=== PATIENT | female | born 1980 ===

== ENCOUNTER 2020-10-05 17:20 | Inpatient (IN) | payer BC ==
[2020-10-05 17:57] VITALS: BMI 24.7
[2020-10-05] MEDS ORDERED: BISMUTH SUBSALICYLATE 524 MG/30 ML UD PO PRN (18:08)
[2020-10-05] MEDS ORDERED: MAG HYDROX/AL HYDROX/SIMETH 30 ML UNIT-DOSE CUP PO PRN (18:08)
[2020-10-05] MEDS ORDERED: NICOTINE POLACRILEX 2 MG GUM BUC PRN (18:08)
[2020-10-05] MEDS ORDERED: MAGNESIUM CITRATE 300 ML BOTTLE PO PRN (18:08)
[2020-10-05] MEDS ORDERED: ACETAMINOPHEN 325 MG TABLET (FP) PO PRN ×2 (18:08)
[2020-10-05] MEDS ORDERED: ONDANSETRON *ODT* 4 MG TABLET SL PRN (18:08)
[2020-10-05] MEDS ORDERED: MAGNESIUM HYDROX 2400MG/30ML ORAL SUSPENSION 30 ML CUP PO PRN (18:08)
[2020-10-05] MEDS ORDERED: MENTHOL/PHENOL 1 EACH UD MM PRN (18:08)
[2020-10-05] MEDS: hydrOXYzine PAMOATE 25 MG CAPSULE (FP) PO PRN (19:36)
[2020-10-05] MEDS: IBUPROFEN 400 MG TABLET (FP) PO PRN (19:37)
[2020-10-05] MEDS: chlordiazePOXIDE HCL 25 MG CAPSULE PO PRN (19:38)
[2020-10-05] MEDS: THIAMINE HCL 100 MG TABLET (FP) PO SCH (22:12)
[2020-10-05] MEDS: MELATONIN 5 MG TABLETS PO SCH (22:12)
[2020-10-05] MEDS: chlordiazePOXIDE HCL 25 MG CAPSULE PO SCH (22:12)
[2020-10-06] MEDS: hydrOXYzine PAMOATE 25 MG CAPSULE (FP) PO PRN ×4 (03:56→22:11)
[2020-10-06] MEDS: chlordiazePOXIDE HCL 25 MG CAPSULE PO SCH ×4 (04:11→22:09)
[2020-10-06] MEDS: IBUPROFEN 400 MG TABLET (FP) PO PRN (05:59)
[2020-10-06] MEDS: METHOCARBAMOL 500 MG TABLET PO PRN ×2 (05:59→12:09)
[2020-10-06] MEDS: chlordiazePOXIDE HCL 25 MG CAPSULE PO PRN ×2 (06:01→12:08)
[2020-10-06] MEDS: NICOTINE 14 MG/24 HOURS TOPICAL PATCH TD SCH (10:08)
[2020-10-06] MEDS: PRENATAL VITAMINS W/ FOLIC ACID TABLET (FP) PO SCH (10:08)
[2020-10-06 12:37] LABS: HEMATOCRIT 33.4 % (32.4-45.2); HEMOGLOBIN 11.4 GM/dL (10.7-15.3); MEAN CELL VOLUME 88.1 fl (80-96); MEAN PLT VOLUME 8.8 fl (7.5-11.1); PLATELET COUNT 106 K/MM3 (134-434); RBC 3.79 M/mm3 (3.60-5.2); RDW 14.4 % (11.6-15.6)
[2020-10-06 12:55] LABS: POTASSIUM 3.7 mmol/L (3.5-5.1)
[2020-10-06 12:58] LABS: BLOOD UREA NITROGEN 7.2 mg/dL (7-18)
[2020-10-06 13:00] LABS: CALCIUM 8.4 mg/dL (8.5-10.1)
[2020-10-06 13:01] LABS: ALBUMIN 3.4 g/dl (3.4-5.0)
[2020-10-06 13:04] LABS: CREATININE 0.7 mg/dL (0.55-1.3)
[2020-10-06 13:05] LABS: BILIRUBIN,TOTAL 0.6 mg/dL (0.2-1); TOT PROT 6.2 g/dl (6.4-8.2)
[2020-10-06] MEDS: MELATONIN 5 MG TABLETS PO SCH (22:09)
[2020-10-06] MEDS: THIAMINE HCL 100 MG TABLET (FP) PO SCH (22:09)
[2020-10-06] MEDS: traZODone HCL 50 MG TABLET (FP) PO SCH (22:09)
[2020-10-07] MEDS: hydrOXYzine PAMOATE 25 MG CAPSULE (FP) PO PRN ×4 (06:15→22:09)
[2020-10-07] MEDS: chlordiazePOXIDE HCL 25 MG CAPSULE PO SCH ×4 (06:16→22:07)
[2020-10-07] MEDS: METHOCARBAMOL 500 MG TABLET PO PRN ×2 (09:32→18:10)
[2020-10-07] MEDS: ARIPiprazole 5 MG TABLET PO SCH (09:32)
[2020-10-07] MEDS: NICOTINE 14 MG/24 HOURS TOPICAL PATCH TD SCH (09:32)
[2020-10-07] MEDS: PRENATAL VITAMINS W/ FOLIC ACID TABLET (FP) PO SCH (09:32)
[2020-10-07] MEDS: FLUoxetine HCL 10 MG CAPSULE PO SCH (09:32)
[2020-10-07 12:41] LABS: ALBUMIN 3.5 g/dl (3.4-5.0)
[2020-10-07 12:44] LABS: CREATININE 0.8 mg/dL (0.55-1.3)
[2020-10-07 12:46] LABS: BILIRUBIN,TOTAL 0.9 mg/dL (0.2-1); TOT PROT 6.4 g/dl (6.4-8.2)
[2020-10-07 12:47] LABS: HEMATOCRIT 34.1 % (32.4-45.2); HEMOGLOBIN 11.6 GM/dL (10.7-15.3); MCH 30.1 pg (25.7-33.7); MCHC 34.2 g/dl (32.0-36.0); MEAN CELL VOLUME 88.2 fl (80-96); MEAN PLT VOLUME 9.5 fl (7.5-11.1); PLATELET COUNT 89 K/MM3 (134-434); RBC 3.87 M/mm3 (3.60-5.2); RDW 14.3 % (11.6-15.6); WHITE BLOOD COUNT 3.5 K/mm3 (4.0-10.0)
[2020-10-07] MEDS: traZODone HCL 50 MG TABLET (FP) PO SCH (22:06)
[2020-10-07] MEDS: MELATONIN 5 MG TABLETS PO SCH (22:06)
[2020-10-07] MEDS: THIAMINE HCL 100 MG TABLET (FP) PO SCH (22:06)
[2020-10-08] MEDS ORDERED: chlordiazePOXIDE HCL 10 MG CAPSULE PO PRN
[2020-10-08] MEDS: hydrOXYzine PAMOATE 25 MG CAPSULE (FP) PO PRN ×4 (04:30→22:12)
[2020-10-08] MEDS: METHOCARBAMOL 500 MG TABLET PO PRN ×3 (04:35→22:12)
[2020-10-08] MEDS: chlordiazePOXIDE HCL 10 MG CAPSULE PO SCH ×4 (06:02→22:11)
[2020-10-08] MEDS: NICOTINE 14 MG/24 HOURS TOPICAL PATCH TD SCH (10:08)
[2020-10-08] MEDS: ARIPiprazole 5 MG TABLET PO SCH (10:08)
[2020-10-08] MEDS: PRENATAL VITAMINS W/ FOLIC ACID TABLET (FP) PO SCH (10:08)
[2020-10-08] MEDS: FLUoxetine HCL 10 MG CAPSULE PO SCH (10:08)
[2020-10-08 14:07] LABS: SARS-CoV-2 NAA Not Detected (Not Detected)
[2020-10-08] MEDS: THIAMINE HCL 100 MG TABLET (FP) PO SCH (22:10)
[2020-10-08] MEDS: traZODone HCL 50 MG TABLET (FP) PO SCH (22:10)
[2020-10-08] MEDS: MELATONIN 5 MG TABLETS PO SCH (22:11)
[2020-10-09] MEDS: chlordiazePOXIDE HCL 10 MG CAPSULE PO SCH ×2 (06:27→17:47)
[2020-10-09] MEDS: hydrOXYzine PAMOATE 25 MG CAPSULE (FP) PO PRN ×3 (06:30→23:36)
[2020-10-09] MEDS: ARIPiprazole 5 MG TABLET PO SCH (10:06)
[2020-10-09] MEDS: FLUoxetine HCL 10 MG CAPSULE PO SCH (10:06)
[2020-10-09] MEDS: NICOTINE 14 MG/24 HOURS TOPICAL PATCH TD SCH (10:06)
[2020-10-09] MEDS: PRENATAL VITAMINS W/ FOLIC ACID TABLET (FP) PO SCH (10:07)
[2020-10-09] MEDS: METHOCARBAMOL 500 MG TABLET PO PRN ×3 (10:07→23:34)
[2020-10-09] MEDS ORDERED: ATORVASTATIN CA 40 MG TABLET (FP) PO SCH (22:00)
[2020-10-09] MEDS: MELATONIN 5 MG TABLETS PO SCH (23:35)
[2020-10-09] MEDS: THIAMINE HCL 100 MG TABLET (FP) PO SCH (23:35)
[2020-10-09] MEDS: traZODone HCL 50 MG TABLET (FP) PO SCH (23:35)
[2020-10-10] MEDS ORDERED: chlordiazePOXIDE HCL 10 MG CAPSULE PO ONE (05:00)
[2020-10-10 09:19] VITALS: BP 109/71; PULSE 67; TEMP 97.3
[2020-10-10] MEDS: PRENATAL VITAMINS W/ FOLIC ACID TABLET (FP) PO SCH (09:32)
[2020-10-10] MEDS: ARIPiprazole 5 MG TABLET PO SCH (09:32)
[2020-10-10] MEDS: FLUoxetine HCL 10 MG CAPSULE PO SCH (09:32)
[2020-10-10] MEDS: NICOTINE 14 MG/24 HOURS TOPICAL PATCH TD SCH (09:33)
[2020-10-10] MEDS: METHOCARBAMOL 500 MG TABLET PO PRN (09:33)
== END 2020-10-10 11:53 | disposition other institution (70) | DRG 775 ==
LOC: YASAS 17:20 → Y3N 18:53
PROVIDERS: ADMIT Allergy & Immunology; ATTEND Allergy & Immunology
PROC: HZ2ZZZZ Detoxification Services for Substance Abuse Treatment (ICD-10-PCS; principal; 2020-10-05)
DX: F10.230 Alcohol dependence with withdrawal, uncomplicated (principal); F12.20 Cannabis dependence, uncomplicated; F17.210 Nicotine dependence, cigarettes, uncomplicated; F32.9 Major depressive disorder, single episode, unspecified; F41.8 Other specified anxiety disorders; F19.24 Other psychoactive substance dependence with psychoactive substance-induced mood disorder; G40.509 Epileptic seizures related to external causes, not intractable, without status epilepticus; G47.00 Insomnia, unspecified; E78.5 Hyperlipidemia, unspecified; D69.6 Thrombocytopenia, unspecified; R74.01 Elevation of levels of liver transaminase levels; R73.9 Hyperglycemia, unspecified; Z87.440 Personal history of urinary (tract) infections; Z91.410 Personal history of adult physical and sexual abuse
CPT/HCPCS: 36415; 80053; 81025; 85027; 86780; 93005; 93010; C9803; U0003; U0005

== ENCOUNTER 2020-10-10 11:58 | Inpatient (IN) | payer BC ==
[2020-10-10] MEDS ORDERED: P-EPHED 60MG/TRIPROLIDI 2.5MG TABLET PO PRN (15:05)
[2020-10-10] MEDS ORDERED: MAG HYDROX/AL HYDROX/SIMETH 30 ML UNIT-DOSE CUP PO PRN (15:05)
[2020-10-10] MEDS ORDERED: MAGNESIUM HYDROX 2400MG/30ML ORAL SUSPENSION 30 ML CUP PO PRN (15:05)
[2020-10-10] MEDS ORDERED: MENTHOL/PHENOL 1 EACH UD MM PRN (15:05)
[2020-10-10] MEDS ORDERED: MAGNESIUM CITRATE 300 ML BOTTLE PO PRN (15:05)
[2020-10-10] MEDS ORDERED: IBUPROFEN 400 MG TABLET (FP) PO PRN (15:05)
[2020-10-10] MEDS ORDERED: LOPERAMIDE HCL 2 MG CAPSULE PO PRN (15:05)
[2020-10-10] MEDS ORDERED: ACETAMINOPHEN 325 MG TABLET (FP) PO PRN (15:05)
[2020-10-10] MEDS ORDERED: guaiFENesin 200 MG/10 ML 10 ML UNIT-DOSE CUPS PO PRN (15:05)
[2020-10-10] MEDS ORDERED: NICOTINE POLACRILEX 2 MG GUM BUC PRN (15:05)
[2020-10-10] MEDS: hydrOXYzine PAMOATE 25 MG CAPSULE (FP) PO PRN ×2 (15:48→21:23)
[2020-10-10] MEDS: MELATONIN 5 MG TABLETS PO SCH (21:22)
[2020-10-10] MEDS: ATORVASTATIN CA 40 MG TABLET (FP) PO SCH (21:22)
[2020-10-10] MEDS: THIAMINE HCL 100 MG TABLET (FP) PO SCH (21:23)
[2020-10-10] MEDS: METHOCARBAMOL 500 MG TABLET PO PRN (21:24)
[2020-10-10] MEDS ORDERED: traZODone HCL 50 MG TABLET (FP) PO SCH (22:00)
[2020-10-11] MEDS: hydrOXYzine PAMOATE 25 MG CAPSULE (FP) PO PRN ×2 (08:41→17:18)
[2020-10-11] MEDS ORDERED: FLUoxetine HCL 10 MG CAPSULE PO SCH (10:00)
[2020-10-11] MEDS: PRENATAL VITAMINS W/ FOLIC ACID TABLET (FP) PO SCH (10:01)
[2020-10-11] MEDS: METHOCARBAMOL 500 MG TABLET PO PRN ×2 (10:02→21:41)
[2020-10-11] MEDS: ARIPiprazole 5 MG TABLET PO SCH (10:08)
[2020-10-11 12:36] LABS: HIV INTERPRETATION NEGATIVE (NEGATIVE)
[2020-10-11] MEDS: MELATONIN 5 MG TABLETS PO SCH (21:39)
[2020-10-11] MEDS: ATORVASTATIN CA 40 MG TABLET (FP) PO SCH (21:40)
[2020-10-11] MEDS: THIAMINE HCL 100 MG TABLET (FP) PO SCH (21:40)
[2020-10-11] MEDS: traZODone HCL 100 MG TABLET (FP) PO SCH (21:40)
[2020-10-12] MEDS: hydrOXYzine PAMOATE 25 MG CAPSULE (FP) PO PRN ×2 (07:22→17:26)
[2020-10-12] MEDS: ARIPiprazole 5 MG TABLET PO SCH (10:00)
[2020-10-12] MEDS: PRENATAL VITAMINS W/ FOLIC ACID TABLET (FP) PO SCH (10:01)
[2020-10-12] MEDS: METHOCARBAMOL 500 MG TABLET PO PRN ×2 (10:02→21:25)
[2020-10-12] MEDS: THIAMINE HCL 100 MG TABLET (FP) PO SCH (21:22)
[2020-10-12] MEDS: traZODone HCL 100 MG TABLET (FP) PO SCH (21:22)
[2020-10-12] MEDS: MELATONIN 5 MG TABLETS PO SCH (21:22)
[2020-10-12] MEDS: ATORVASTATIN CA 40 MG TABLET (FP) PO SCH (21:22)
[2020-10-13] MEDS ORDERED: PT OWN MED DRAWER 7, Y5N ONE (08:14)
[2020-10-13] MEDS: hydrOXYzine PAMOATE 25 MG CAPSULE (FP) PO PRN ×2 (08:41→14:32)
[2020-10-13] MEDS: PRENATAL VITAMINS W/ FOLIC ACID TABLET (FP) PO SCH (09:52)
[2020-10-13] MEDS: ARIPiprazole 5 MG TABLET PO SCH (09:53)
[2020-10-13] MEDS: METHOCARBAMOL 500 MG TABLET PO PRN ×2 (09:54→21:34)
[2020-10-13] MEDS: traZODone HCL 100 MG TABLET (FP) PO SCH (21:33)
[2020-10-13] MEDS: QUEtiapine FUMARATE 50 MG TABLET PO SCH (21:33)
[2020-10-13] MEDS: MELATONIN 5 MG TABLETS PO SCH (21:33)
[2020-10-13] MEDS: ATORVASTATIN CA 40 MG TABLET (FP) PO SCH (21:33)
[2020-10-13] MEDS: THIAMINE HCL 100 MG TABLET (FP) PO SCH (21:33)
[2020-10-14] MEDS: METHOCARBAMOL 500 MG TABLET PO PRN ×3 (06:49→21:28)
[2020-10-14] MEDS: QUEtiapine FUMARATE 50 MG TABLET PO SCH ×2 (09:49→21:28)
[2020-10-14] MEDS: PRENATAL VITAMINS W/ FOLIC ACID TABLET (FP) PO SCH (09:49)
[2020-10-14] MEDS: ESCITALOPRAM OXALATE 10 MG TABLET PO SCH (09:50)
[2020-10-14 10:07] LABS: SARS-CoV-2 NAA Not Detected (Not Detected)
[2020-10-14] MEDS: ATORVASTATIN CA 40 MG TABLET (FP) PO SCH (21:28)
[2020-10-14] MEDS: MELATONIN 5 MG TABLETS PO SCH (21:28)
[2020-10-14] MEDS: THIAMINE HCL 100 MG TABLET (FP) PO SCH (21:28)
[2020-10-14] MEDS: traZODone HCL 100 MG TABLET (FP) PO SCH (21:28)
[2020-10-15] MEDS: METHOCARBAMOL 500 MG TABLET PO PRN ×2 (07:17→16:59)
[2020-10-15] MEDS: hydrOXYzine PAMOATE 25 MG CAPSULE (FP) PO PRN (07:19)
[2020-10-15] MEDS: PRENATAL VITAMINS W/ FOLIC ACID TABLET (FP) PO SCH (09:47)
[2020-10-15] MEDS: QUEtiapine FUMARATE 50 MG TABLET PO SCH ×2 (09:47→21:34)
[2020-10-15] MEDS: ESCITALOPRAM OXALATE 10 MG TABLET PO SCH (09:48)
[2020-10-15] MEDS: ATORVASTATIN CA 40 MG TABLET (FP) PO SCH (21:34)
[2020-10-15] MEDS: traZODone HCL 100 MG TABLET (FP) PO SCH (21:34)
[2020-10-15] MEDS: THIAMINE HCL 100 MG TABLET (FP) PO SCH (21:34)
[2020-10-15] MEDS: MELATONIN 5 MG TABLETS PO SCH (21:34)
[2020-10-16] MEDS: METHOCARBAMOL 500 MG TABLET PO PRN ×2 (09:00→17:57)
[2020-10-16] MEDS: ESCITALOPRAM OXALATE 10 MG TABLET PO SCH (09:00)
[2020-10-16] MEDS: QUEtiapine FUMARATE 50 MG TABLET PO SCH ×2 (09:00→21:39)
[2020-10-16] MEDS: hydrOXYzine PAMOATE 25 MG CAPSULE (FP) PO PRN ×2 (09:00→21:39)
[2020-10-16] MEDS: PRENATAL VITAMINS W/ FOLIC ACID TABLET (FP) PO SCH (09:00)
[2020-10-16] MEDS: traZODone HCL 100 MG TABLET (FP) PO SCH (21:39)
[2020-10-16] MEDS: THIAMINE HCL 100 MG TABLET (FP) PO SCH (21:39)
[2020-10-16] MEDS: MELATONIN 5 MG TABLETS PO SCH (21:40)
[2020-10-16] MEDS: ATORVASTATIN CA 40 MG TABLET (FP) PO SCH (21:40)
[2020-10-17] MEDS: METHOCARBAMOL 500 MG TABLET PO PRN ×2 (06:32→18:37)
[2020-10-17] MEDS: ESCITALOPRAM OXALATE 10 MG TABLET PO SCH (10:02)
[2020-10-17] MEDS: PRENATAL VITAMINS W/ FOLIC ACID TABLET (FP) PO SCH (10:02)
[2020-10-17] MEDS: QUEtiapine FUMARATE 50 MG TABLET PO SCH ×2 (10:02→21:17)
[2020-10-17] MEDS: hydrOXYzine PAMOATE 25 MG CAPSULE (FP) PO PRN (18:37)
[2020-10-17] MEDS: ATORVASTATIN CA 40 MG TABLET (FP) PO SCH (21:17)
[2020-10-17] MEDS: THIAMINE HCL 100 MG TABLET (FP) PO SCH (21:17)
[2020-10-17] MEDS: MELATONIN 5 MG TABLETS PO SCH (21:17)
[2020-10-17] MEDS: traZODone HCL 100 MG TABLET (FP) PO SCH (21:17)
[2020-10-18] MEDS: METHOCARBAMOL 500 MG TABLET PO PRN ×3 (07:49→21:25)
[2020-10-18] MEDS: PRENATAL VITAMINS W/ FOLIC ACID TABLET (FP) PO SCH (10:22)
[2020-10-18] MEDS: ESCITALOPRAM OXALATE 10 MG TABLET PO SCH (10:22)
[2020-10-18] MEDS: QUEtiapine FUMARATE 50 MG TABLET PO SCH ×2 (10:23→21:25)
[2020-10-18] MEDS: MELATONIN 5 MG TABLETS PO SCH (21:25)
[2020-10-18] MEDS: traZODone HCL 100 MG TABLET (FP) PO SCH (21:25)
[2020-10-18] MEDS: THIAMINE HCL 100 MG TABLET (FP) PO SCH (21:25)
[2020-10-18] MEDS: hydrOXYzine PAMOATE 25 MG CAPSULE (FP) PO PRN (21:25)
[2020-10-18] MEDS: ATORVASTATIN CA 40 MG TABLET (FP) PO SCH (21:25)
[2020-10-19] MEDS: METHOCARBAMOL 500 MG TABLET PO PRN ×3 (06:34→22:06)
[2020-10-19] MEDS: ESCITALOPRAM OXALATE 10 MG TABLET PO SCH (10:13)
[2020-10-19] MEDS: PRENATAL VITAMINS W/ FOLIC ACID TABLET (FP) PO SCH (10:13)
[2020-10-19] MEDS: QUEtiapine FUMARATE 50 MG TABLET PO SCH ×2 (10:13→22:04)
[2020-10-19] MEDS: traZODone HCL 100 MG TABLET (FP) PO SCH (22:04)
[2020-10-19] MEDS: THIAMINE HCL 100 MG TABLET (FP) PO SCH (22:04)
[2020-10-19] MEDS: ATORVASTATIN CA 40 MG TABLET (FP) PO SCH (22:04)
[2020-10-19] MEDS: MELATONIN 5 MG TABLETS PO SCH (22:04)
[2020-10-20] MEDS: METHOCARBAMOL 500 MG TABLET PO PRN ×3 (06:35→21:20)
[2020-10-20] MEDS: PRENATAL VITAMINS W/ FOLIC ACID TABLET (FP) PO SCH (10:32)
[2020-10-20] MEDS: ESCITALOPRAM OXALATE 10 MG TABLET PO SCH (10:32)
[2020-10-20] MEDS: QUEtiapine FUMARATE 50 MG TABLET PO SCH ×2 (10:32→21:20)
[2020-10-20] MEDS: traZODone HCL 100 MG TABLET (FP) PO SCH (21:20)
[2020-10-20] MEDS: MELATONIN 5 MG TABLETS PO SCH (21:20)
[2020-10-20] MEDS: ATORVASTATIN CA 40 MG TABLET (FP) PO SCH (21:20)
[2020-10-20] MEDS: THIAMINE HCL 100 MG TABLET (FP) PO SCH (21:20)
[2020-10-21] MEDS: METHOCARBAMOL 500 MG TABLET PO PRN ×2 (06:31→14:26)
[2020-10-21] MEDS: PRENATAL VITAMINS W/ FOLIC ACID TABLET (FP) PO SCH (10:18)
[2020-10-21] MEDS: QUEtiapine FUMARATE 50 MG TABLET PO SCH ×2 (10:19→21:41)
[2020-10-21] MEDS: ESCITALOPRAM OXALATE 10 MG TABLET PO SCH (10:19)
[2020-10-21] MEDS: traZODone HCL 100 MG TABLET (FP) PO SCH (21:41)
[2020-10-21] MEDS: MELATONIN 5 MG TABLETS PO SCH (21:41)
[2020-10-21] MEDS: ATORVASTATIN CA 40 MG TABLET (FP) PO SCH (21:41)
[2020-10-21] MEDS: THIAMINE HCL 100 MG TABLET (FP) PO SCH (21:41)
[2020-10-22] MEDS: METHOCARBAMOL 500 MG TABLET PO PRN (06:06)
[2020-10-22 07:01] VITALS: BP 119/79; PULSE 57; TEMP 97.8
[2020-10-22] MEDS: ESCITALOPRAM OXALATE 10 MG TABLET PO SCH (10:06)
[2020-10-22] MEDS: QUEtiapine FUMARATE 50 MG TABLET PO SCH (10:06)
[2020-10-22] MEDS: PRENATAL VITAMINS W/ FOLIC ACID TABLET (FP) PO SCH (10:06)
== END 2020-10-22 10:45 | disposition home or self-care (01) | DRG 772 ==
LOC: YASAS 11:58 → Y5N 11:59
PROVIDERS: ADMIT Allergy & Immunology; ATTEND Allergy & Immunology
PROC: HZ42ZZZ Group Counseling for Substance Abuse Treatment, Cognitive-Behavioral (ICD-10-PCS; principal; 2020-10-10)
DX: F10.20 Alcohol dependence, uncomplicated (principal); F17.210 Nicotine dependence, cigarettes, uncomplicated; F31.9 Bipolar disorder, unspecified; F41.9 Anxiety disorder, unspecified; F43.10 Post-traumatic stress disorder, unspecified; E78.5 Hyperlipidemia, unspecified; G47.00 Insomnia, unspecified; Z86.69 Personal history of other diseases of the nervous system and sense organs; Z86.59 Personal history of other mental and behavioral disorders; Z56.0 Unemployment, unspecified; Z59.0 Homelessness
CPT/HCPCS: 36415; 87389; C9803; U0003; U0005